=== PATIENT | female | born 1950 | race African-American/Black ===

== ENCOUNTER 2016-07-06 16:10 | Emergency (ER) | payer MEDICARE, MEDICAID ==
[~2016-07-06] VITALS: Ht 160 cm; Wt 85.0 kg
[~2016-07-06 16:10] MED LIST: CALCIUM PO; CYAN10009 PO; GABA-531 PO; GINK120C PO; LANS15CA5 PO; LOSA50TA20 PO; METF500T4 PO; NAPR220T66 PO; VIT D PO; ZINC PO
[2016-07-06 17:57] LABS: CLARITY URINE CLEAR (CLEAR); COLOR URINE YELLOW (YELLOW); GLUCOSE URINE NEGATIVE (NEGATIVE); KETONES URINE NEGATIVE (NEGATIVE); LEUKOCYTE ESTERASE URINE NEGATIVE (NEGATIVE); NITRITE URINE NEGATIVE (NEGATIVE); OCCULT BLOOD URINE NEGATIVE (NEGATIVE); PH URINE 7.5 (4.5-8.0); PROTEIN URINE NEGATIVE (NEGATIVE); SPECIFIC GRAVITY URINE 1.004 (1.005-1.030); UROBILINOGEN URINE 0.2 E.U./dL (0.2-1.0)
[2016-07-06 18:09] LABS: ANION GAP 10; CALCIUM 9.4 mg/dL (8.5-10.1); CARBON DIOXIDE 30 mEq/L (21-32); CHLORIDE 105 mEq/L (98-107); INDEX HEMOLYSI 1 (1-3); INDEX ICTERIC 1 (1-4); INDEX LIPEMIC 1 (1-3); UREA NITROGEN BLOOD 9 mg/dL (7-21); eGFR > 60 mL/min (>60)
[2016-07-06 21:51] VITALS: BP 148/76
== END 2016-07-06 23:45 | disposition home or self-care (01) ==
LOC: ER 18:53
DX: R30.0 Dysuria (principal); K59.00 Constipation, unspecified; E11.9 Type 2 diabetes mellitus without complications; I10 Essential (primary) hypertension; Z79.84 Long term (current) use of oral hypoglycemic drugs; Z79.899 Other long term (current) drug therapy
CPT/HCPCS: 36415; 74000; 80048; 81003; 99285

== ENCOUNTER 2018-04-07 13:40 | Emergency (ER) | payer MEDICARE, MEDICAID ==
[~2018-04-07] VITALS: Ht 160 cm; Wt 91.0 kg
[~2018-04-07 13:40] MED LIST changes: +LANS15CA12 PO; -LANS15CA5 PO; +METF-414 PO; -METF500T4 PO
[2018-04-07 13:46] VITALS: BP 141/81
== END 2018-04-07 16:19 | disposition left against medical advice (07) ==
LOC: ER 14:19
DX: Z53.21 Procedure and treatment not carried out due to patient leaving prior to being seen by health care provider (principal)
CPT/HCPCS: 93005

== ENCOUNTER → 2019-11-06 | Outpatient (CLI) | payer MEDICARE, MEDICAID ==
[~2019-11-06] MED LIST changes: +CYAN-50 PO; -CYAN10009 PO; -LOSA50TA20 PO; +LOSA50TA41 PO
== END | disposition home or self-care (01) ==
LOC: LAB 12:05
PROVIDERS: ATTEND Orthopaedic Surgery
DX: Z01.818 Encounter for other preprocedural examination (principal); Z11.59 Encounter for screening for other viral diseases; M25.121 Fistula, right elbow
CPT/HCPCS: C9803; U0003

== ENCOUNTER → 2019-11-10 | Day surgery (SDC) | payer MEDICARE, MEDICAID ==
[~2019-11-10] VITALS: Ht 160 cm; Wt 88.9 kg
[~2019-11-10] MED LIST changes: +BUPIVACAINE HCL/EPINEPHRINE/PF 0.5%/0.0005 10ML ONE; +BUPIVACAINE/EPINEPH/PF 0.25%/0.0005 10ML ONE; +CEFAZOLIN SODIUM 1000MG/VIAL ONE; +DEXAMETHASONE 4MG/ML 1ML VIAL ONE; +EMPA10TA PO; +EPINEPHRINE 1:1000 1 MG/ML AMP ONE; +ERGO500013 PO; +GLYCOPYRROLATE 0.2 MG/ML 2ML VIAL ONE; +HYDROCODONE/ACETAMINOPHEN 10/325MG TABLET PO PRN; +HYDROMORPHONE HCL/PF 2MG/ML (OR) ONE; +HYDROMORPHONE HCL/PF 2MG/ML CPJ IV PRN; +INSU100I19 SQ; +INSULIN REGULAR (HUMULIN R) 300UNITS/3ML ONE; +INSULIN REGULAR (HUMULIN R) 300UNITS/3ML SUBCUT ONE; +LABETALOL 5MG/ML SYR 20 MG/4 ML SYRINGE IV PRN; +MEPERIDINE HCL/PF 25MG/ML CPJ IV PRN; +MORPHINE SULFATE/PF 1MG/ML 10ML AMP ONE; +ONDANSETRON HCL 4MG/2ML INJ IV PRN; +ROPIVACAINE HCL 10MG/ML 20 ML VIAL EPI ONE; +SITA1TAB2 PO; +SODIUM CHLORIDE 0.9% 1,000 ML IV SCH
== END | disposition home or self-care (01) ==
LOC: OR 06:06
PROVIDERS: ATTEND Orthopaedic Surgery
DX: S43.431A Superior glenoid labrum lesion of right shoulder, initial encounter (principal); M75.101 Unspecified rotator cuff tear or rupture of right shoulder, not specified as traumatic; M75.21 Bicipital tendinitis, right shoulder; M19.011 Primary osteoarthritis, right shoulder; I10 Essential (primary) hypertension; E11.9 Type 2 diabetes mellitus without complications; K21.9 Gastro-esophageal reflux disease without esophagitis; Z79.84 Long term (current) use of oral hypoglycemic drugs; Z79.4 Long term (current) use of insulin; Z79.899 Other long term (current) drug therapy; Z98.890 Other specified postprocedural states; X58.XXXA Exposure to other specified factors, initial encounter; Y93.89 Activity, other specified; Y92.89 Other specified places as the place of occurrence of the external cause; Y99.8 Other external cause status
CPT/HCPCS: 29824; 29826; 82962; 88304; 97166; J0171; J1100; J1170; J1815; J2274; J2795; J3490; A4565; J0690

== ENCOUNTER 2022-07-28 16:20 | Emergency (ER) | payer MEDICARE, MEDICAID ==
[~2022-07-28] VITALS: Ht 160 cm; Wt 88.0 kg
[~2022-07-28 16:20] MED LIST changes: -BUPIVACAINE HCL/EPINEPHRINE/PF 0.5%/0.0005 10ML ONE; -BUPIVACAINE/EPINEPH/PF 0.25%/0.0005 10ML ONE; -CALCIUM PO; -CEFAZOLIN SODIUM 1000MG/VIAL ONE; -DEXAMETHASONE 4MG/ML 1ML VIAL ONE; -EPINEPHRINE 1:1000 1 MG/ML AMP ONE; +ERGO1250 PO; -ERGO500013 PO; -GABA-531 PO; +GABA-532 PO; -GINK120C PO; -GLYCOPYRROLATE 0.2 MG/ML 2ML VIAL ONE; -HYDROCODONE/ACETAMINOPHEN 10/325MG TABLET PO PRN; -HYDROMORPHONE HCL/PF 2MG/ML (OR) ONE; -HYDROMORPHONE HCL/PF 2MG/ML CPJ IV PRN; -INSU100I19 SQ; +INSU100I20 SQ; -INSULIN REGULAR (HUMULIN R) 300UNITS/3ML ONE; -INSULIN REGULAR (HUMULIN R) 300UNITS/3ML SUBCUT ONE; -LABETALOL 5MG/ML SYR 20 MG/4 ML SYRINGE IV PRN; -LANS15CA12 PO; -MEPERIDINE HCL/PF 25MG/ML CPJ IV PRN; -METF-414 PO; -MORPHINE SULFATE/PF 1MG/ML 10ML AMP ONE; -NAPR220T66 PO; -ONDANSETRON HCL 4MG/2ML INJ IV PRN; -ROPIVACAINE HCL 10MG/ML 20 ML VIAL EPI ONE; -SODIUM CHLORIDE 0.9% 1,000 ML IV SCH; -VIT D PO; -ZINC PO
[2022-07-28 16:27] VITALS: BP 131/70
[2022-07-28] MEDS ORDERED: ACETAMINOPHEN 325MG TABLET PO ONE (16:45)
[2022-07-28 16:52] LABS: CLARITY URINE TURBID (CLEAR); COLOR URINE YELLOW (YELLOW); KETONES URINE NEGATIVE (NEGATIVE); LEUKOCYTE ESTERASE URINE 3+ (NEGATIVE); NITRITE URINE NEGATIVE (NEGATIVE); OCCULT BLOOD URINE 1+ (NEGATIVE); PROTEIN URINE 1+ (NEGATIVE); SPECIFIC GRAVITY URINE 1.014 (1.005-1.030); UROBILINOGEN URINE 0.2 E.U./dL (0.2-1.0)
[2022-07-28 16:53] LABS: BASOPHILS % 0.7 % (0.0-2.0); EOSINOPHILS % 3.4 % (0.0-5.0); HEMOGLOBIN. 13.9 g/dL (12.0-16.0); LYMPHOCYTES % 26.8 % (20.0-50.0); MEAN CORPUSCULAR VOLUME 88.5 fL (81.0-99.0); MEAN PLATELET VOLUME 7.8 fl (7.4-10.4); MONOCYTES % 10.9 % (2.0-8.0); NEUTROPHILS % 58.2 % (40.0-76.0); PLATELET 276 x1000/uL (130-400); RED BLOOD CELL COUNT 4.63 mill/uL (4.2-5.4); RED CELL DISTRIBUTION WIDTH 13.8 % (11.6-14.6)
[2022-07-28 17:00] LABS: CHLORIDE 103 mEq/L (98-107)
[2022-07-28] MEDS ORDERED: NITROFURANTOIN 100MG M/M CAPSULE PO NR (18:00)
[2022-07-28] MEDS ORDERED: ACET-2708 MT (18:12)
[2022-07-28] MEDS ORDERED: NITR-87 MT (18:12)
[2022-07-28] MEDS ORDERED: METR375C2 MT (18:21)
[2022-07-28] MEDS ORDERED: METRONIDAZOLE 500MG TABLET PO NR (18:30)
[2022-07-28] MEDS ORDERED: ACETAMINOPHEN 325MG TABLET PO NR (18:45)
== END 2022-07-28 18:46 | disposition home or self-care (01) ==
LOC: ER 16:20
DX: N39.0 Urinary tract infection, site not specified (principal); E11.9 Type 2 diabetes mellitus without complications; K21.9 Gastro-esophageal reflux disease without esophagitis; I10 Essential (primary) hypertension
CPT/HCPCS: 36415; 74018; 80053; 81003; 85025; 99284